=== PATIENT | female | born 1990 | race Caucasian/White ===

== ENCOUNTER 2019-01-10 23:11 | Emergency (ER) | payer SELFPAY ==
[~2019-01-10] VITALS: Ht 162.6 cm; Wt 49.4 kg
[2019-01-10 23:18] VITALS: Ht 162.6 cm; Wt 49.4 kg
[2019-01-11] MEDS ORDERED: predniSONE 20 MG TAB PO ONE (01:00)
[2019-01-11] MEDS ORDERED: PENI500T PO (01:44)
[2019-01-11] MEDS ORDERED: PRED20TA PO (01:44)
[2019-01-11 03:06] VITALS: BP 115/62; PULSE 103; RESP 18
--- NOTE | 2019-01-13 13:13 | ERD ---
ER Documentation Chief Complaint Chief Complaint SORE THROAT FEVER X2DAYS HPI 28-year-old female presents with complaint of sore throat and fever for the past 3 days. States that she has been taking Tylenol. Last dose was at 6:30 PM today. Denies drooling, trismus, difficulty swallowing, muffled voice, difficulty breathing, rash, or neck stiffness. ROS All systems reviewed and are negative except as per history of present illness. Medications Home Meds Active Scripts Penicillin V Potassium* (Penicillin V K*) 500 Mg Tab, 500 MG PO TID for 10 Days, TAB Prov:SHAMIR PAPPAS 01/11/19 Prednisone* (Prednisone*) 20 Mg Tab, 40 MG PO DAILY for 4 Days, TAB Prov:SHAMIR PAPPAS 01/11/19 PMhx/Soc Medical and Surgical Hx: pt denies Medical Hx, pt denies Surgical Hx Hx Alcohol Use: No Hx Substance Use: No Hx Tobacco Use: No Smoking Status: Never smoker FmHx Family History: No diabetes, No coronary disease, No other Physical Exam Vitals Vital Signs Date Temp Pulse Resp B/P (MAP) Pulse Ox O2 O2 Flow FiO2 Time Delivery Rate 01/11/19 100.2 103 18 115/62 100 Room Air 03:06 (79) 01/10/19 101.6 82 20 136/74 99 23:18 (94) Physical Exam Const: No acute distress Head: Atraumatic Eyes: Normal Conjunctiva ENT: Normal External Ears, Nose and Mouth. Tonsils are edematous and erythematous with exudates bilaterally. Airways patent. There are no peritonsillar masses noted. Uvula is midline. Neck: Full range of motion. No meningismus. Anterior cervical lymphadenopathy. Resp: Clear to auscultation bilaterally Cardio: Regular rate and rhythm, no murmurs Abd: Soft, non tender, non distended. Normal bowel sounds Skin: No petechiae or rashes Back: No midline or flank tenderness Ext: No cyanosis, or edema Neur: Awake and alert Psych: Normal Mood and Affect Results 24 hrs Laboratory Tests Test 01/11/19 01:21 01/11/19 01:22 Monoscreen Negative POC Beta HCG, Qualitative NEGATIVE Current Medications Medications Dose Sig/Govind Start Time Status Last (Trade) Ordered Route PRN Stop Time Admin Dose Reason Admin Prednisone 40 mg ONCE ONCE 01/11/19 DC 01/11/19 (Prednisone) PO 01:00 01:34 01/11/19 01:01 Procedures/MDM MDM: Patient met centor criteria for rapid strep. In addition, Monospot was ordered. Patient was signed out to JONO Rankin pending results of rapid strep and Monospot. Departure Diagnosis: Primary Impression: Strep pharyngitis Condition: Stable Patient Instructions: Pharyngitis, Strep (Confirmed) Referrals: [facility] YOU HAVE RECEIVED A MEDICAL SCREENING EXAM AND THE RESULTS INDICATE THAT YOU DO NOT HAVE A CONDITION THAT REQUIRES URGENT TREATMENT IN THE EMERGENCY DEPARTMENT. FURTHER EVALUATION AND TREATMENT OF YOUR CONDITION CAN WAIT UNTIL YOU ARE SEEN IN YOUR DOCTORS OFFICE WITHIN THE NEXT 1-2 DAYS. IT IS YOUR RESPONSIBILITY TO MAKE AN APPOINTMENT FOR FOLOW-UP CARE. IF YOU HAVE A PRIMARY DOCTOR --you should call your primary doctor and schedule an appointment IF YOU DO NOT HAVE A PRIMARY DOCTOR YOU CAN CALL OUR PHYSICIAN REFERRAL HOTLINE AT IF YOU CAN NOT AFFORD TO SEE A PHYSICIAN YOU CAN CHOSE FROM THE FOLLOWING [facility] [address] [facility] [address] [facility] [facility] [address] [facility] [address] [facility] [address] [facility]. [address] Additional Instructions: FOLLOW UP WITH YOUR PRIMARY CARE PHYSICIAN TOMORROW.Return to this facility if you are not improving as expected. SHAMIR PAPPAS January 13, 2019 13:13
== END 2019-01-11 03:08 | disposition home or self-care (01) ==
LOC: FTE 23:11
DX: J02.0 Streptococcal pharyngitis (principal)
CPT/HCPCS: 81025; 86308; 87880; 99283; J7512